=== PATIENT | male | born 1955 | race Hispanic/Latino ===

== ENCOUNTER 2018-07-29 23:34 | Observation (INO) | payer BC, OTHER ==
[~2018-07-29] VITALS: Ht 172.7 cm; Wt 79.4 kg
[2018-07-29 23:50] LABS: BASOPHILS % (AUTO) 0.4 % (0.0-5.0); EOSINOPHILS % (AUTO) 0.4 % (0.0-8.0); HEMATOCRIT 43.5 % (42-54); MEAN CORPUSCULAR HEMOGLOBIN 32.8 pg (27.0-33.0); MEAN CORPUSCULAR HGB CONC 34.6 g/dL (32.0-36.0); MEAN CORPUSCULAR VOLUME 94.8 fL (79-99); MONOCYTES % (AUTO) 10.1 % (3.0-13.0); NEUTROPHILS % (AUTO) 62.1 % (40.0-77.0); PLATELET COUNT (AUTO) 155 K/uL (130-400); RED BLOOD CELL COUNT(AUTO) 4.59 MIL/uL (4.50-6.20); RED CELL DISTRIBUTION WIDTH 13.2 % (11.0-15.5); WHITE BLOOD COUNT (AUTO) 5.3 K/uL (4.8-10.8)
[2018-07-29 23:58] LABS: CREATININE 1.3 mg/dL (0.5-1.5); POTASSIUM 3.7 mmol/L (3.5-5.1)
[2018-07-30] MEDS ORDERED: ASPIRIN 325 MG TABLET ONE (00:01)
[2018-07-30 00:04] LABS: PARTIAL THROMBOPLASTIN TIME 27.5 SEC (26.3-35.5); PROTHROMBIN TIME 10.5 SEC (9.6-11.6)
[2018-07-30 00:09] LABS: ALBUMIN 3.8 g/dL (3.5-5.0); BILIRUBIN,TOTAL 0.8 mg/dL (0.2-1.0); TOTAL PROTEIN, SERUM 7.7 g/dL (6.0-8.3)
[2018-07-30] MEDS ORDERED: MORPHINE SULFATE 4 MG/1ML SYG ONE (01:11)
[2018-07-30] MEDS ORDERED: ONDANSETRON HCL 4 MG/2 ML VIAL ONE (01:11)
[2018-07-30] MEDS ORDERED: PROMETHAZINE HCL 25 MG/ML 1ML AMPULE IM ONE (01:36)
[2018-07-30] MEDS ORDERED: SODIUM CHLORIDE 0.9% 100 ML IV ONE (01:37)
[2018-07-30] MEDS ORDERED: ONDANSETRON HCL 4 MG/2 ML VIAL IV PRN (01:45)
[2018-07-30] MEDS ORDERED: ACETAMINOPHEN 325 MG TAB PO PRN (01:45)
[2018-07-30] MEDS ORDERED: MORPHINE SULFATE 2 MG/ML 1ML SYG IV PRN (01:45)
[2018-07-30] MEDS ORDERED: LORAZEPAM 1 MG TABLET PO PRN (02:00)
[2018-07-30] MEDS ORDERED: LORAZEPAM 1 MG TABLET ONE (02:11)
[2018-07-30 02:15] VITALS: BP 137/86
[2018-07-30] MEDS ORDERED: DIAZ10TA PO (02:38)
[2018-07-30] MEDS ORDERED: TRAZ-185 PO (02:38)
[2018-07-30] MEDS ORDERED: LISI40TA4 PO (02:38)
[2018-07-30] MEDS ORDERED: ATEN50TA PO (02:38)
[2018-07-30] MEDS ORDERED: OMEP40CA37 PO (02:38)
[2018-07-30] MEDS: NITROGLYCERIN 1GM/1 INCH PACKET TD SCH ×3 (04:04→17:12)
[2018-07-30] MEDS ORDERED: GLUCAGON 1MG KIT 1 MG ML IM PRN (04:15)
[2018-07-30] MEDS ORDERED: DEXTROSE 50%-WATER 50 ML DISP.SYRIN IV PRN (04:15)
[2018-07-30 04:31] LABS: CHOLESTEROL 169 mg/dL (<200); HDL CHOLESTEROL 33 mg/dL (29-71); LDL DIRECT 124 mg/dL (0-99); TRIGLYCERIDES 68 mg/dL (30-200)
[2018-07-30] MEDS: INSULIN HUMULIN R 100 UNIT/ML 3ML SQ SCH ×3 (06:42→16:30)
[2018-07-30 07:53] VITALS: BP 119/73
[2018-07-30] MEDS ORDERED: ASPIRIN 325 MG TABLET PO SCH (09:00)
[2018-07-30] MEDS ORDERED: METOPROLOL TARTRATE 25 MG TAB PO SCH (09:00)
[2018-07-30] MEDS ORDERED: ENOXAPARIN SODIUM 30 MG/0.3 ML SQ SCH (09:00)
[2018-07-30] MEDS ORDERED: FAMOTIDINE/PF 20 MG/2 ML VIAL IV SCH (09:00)
[2018-07-30 09:35] LABS: AMPHET/METH SCREEN,URINE NEGATIVE (NEGATIVE); BARBITURATE SCREEN, URINE NEGATIVE (NEGATIVE); BENZODIAZEPINES SCREEN,URINE NEGATIVE (NEGATIVE); CANNABINOID SCREEN,URINE POSITIVE (NEGATIVE); COCAINE SCREEN,URINE POSITIVE (NEGATIVE); OPIATE SCREEN,URINE POSITIVE (NEGATIVE); PHENCYCLIDINE SCREEN,URINE NEGATIVE (NEGATIVE)
[2018-07-30 11:38] VITALS: BP 136/68
[2018-07-30 16:26] VITALS: BP 113/66
[2018-07-30] MEDS ORDERED: ATORVASTATIN CALCIUM 40 MG TABLET PO SCH (21:00)
== END 2018-07-30 18:06 | disposition home or self-care (01) ==
LOC: EDH 23:34 → EDHIP 07-30 01:30 → 2DH 07-30 02:13
PROVIDERS: ADMIT Internal Medicine; ATTEND Internal Medicine
DX: I20.0 Unstable angina (principal); I10 Essential (primary) hypertension; K21.9 Gastro-esophageal reflux disease without esophagitis; K52.9 Noninfective gastroenteritis and colitis, unspecified; K76.0 Fatty (change of) liver, not elsewhere classified; N17.9 Acute kidney failure, unspecified; G47.00 Insomnia, unspecified; F14.20 Cocaine dependence, uncomplicated; F12.10 Cannabis abuse, uncomplicated; Z82.49 Family history of ischemic heart disease and other diseases of the circulatory system; Z91.19 Patient's noncompliance with other medical treatment and regimen; Z79.899 Other long term (current) drug therapy
CPT/HCPCS: 36415 ×2; 71045; 74176; 80053; 80061; 80305; 82550; 82948 ×3; 83874; 84484 ×2; 85025; 85610; 85730; 93005; 96372; 96374; 99284; A4600; G0378 ×17; G0480; J1650; J2270; J2405; J2550; J3490